=== PATIENT | male | born 1945 | race Caucasian/White ===

== ENCOUNTER 2017-10-15 06:27 | Day surgery (SDC) | payer MEDICARE ==
[~2017-10-15] VITALS: Ht 182.9 cm; Wt 89.4 kg
[~2017-10-15 06:27] MED LIST: ALLOPURINOL100 MG PO; GLUCOSAMINE/CHO1 CA1 PO; LISINOP/HCTZ1 TA1 PO; SIMVASTATIN20 MG PO; VITAMIN C500 M6 PO
[2017-10-15 08:41] VITALS: BP 119/63
== END 2017-10-15 09:24 | disposition home or self-care (01) ==
LOC: ENDO 06:27 → ORM 09:45 → ENDO 09:45
PROVIDERS: ATTEND Internal Medicine Gastroenterology
PROC: 0DBE8ZX Excision of Large Intestine, Via Natural or Artificial Opening Endoscopic, Diagnostic (ICD-10-PCS; principal; 2017-10-15)
DX: K59.00 Constipation, unspecified (principal); R19.7 Diarrhea, unspecified; K64.4 Residual hemorrhoidal skin tags; K57.30 Diverticulosis of large intestine without perforation or abscess without bleeding; K64.8 Other hemorrhoids; E78.00 Pure hypercholesterolemia, unspecified; I10 Essential (primary) hypertension

== ENCOUNTER 2018-04-28 10:42 | Emergency (ER) | payer MEDICARE ==
[~2018-04-28] VITALS: Ht 182.9 cm; Wt 100.0 kg
[2018-04-28] MEDS ORDERED: KEFLEX500 M1 PO (12:25)
[2018-04-28 12:42] VITALS: BP 144/90
== END 2018-04-28 12:42 | disposition home or self-care (01) ==
LOC: ED 10:42
PROC: 0HQ0XZZ Repair Scalp Skin, External Approach (ICD-10-PCS; principal; 2018-04-28)
DX: S01.01XA Laceration without foreign body of scalp, initial encounter (principal); I10 Essential (primary) hypertension; E78.5 Hyperlipidemia, unspecified; W01.190A Fall on same level from slipping, tripping and stumbling with subsequent striking against furniture, initial encounter; Y92.009 Unspecified place in unspecified non-institutional (private) residence as the place of occurrence of the external cause

== ENCOUNTER 2018-04-30 09:37 | Emergency (ER) | payer MEDICARE ==
[~2018-04-30] VITALS: Ht 182.9 cm; Wt 90.5 kg
[~2018-04-30 09:37] MED LIST changes: +KEFLEX500 M1 PO
[2018-04-30 11:28] VITALS: BP 143/74
== END 2018-04-30 11:28 | disposition home or self-care (01) ==
LOC: ED 09:37
DX: S01.01XD Laceration without foreign body of scalp, subsequent encounter (principal); S06.320D Contusion and laceration of left cerebrum without loss of consciousness, subsequent encounter; W01.190D Fall on same level from slipping, tripping and stumbling with subsequent striking against furniture, subsequent encounter

== ENCOUNTER 2018-05-05 12:34 | Emergency (ER) | payer MEDICARE ==
[~2018-05-05] VITALS: Ht 182.9 cm; Wt 90.0 kg
[2018-05-05 13:07] VITALS: BP 154/72
== END 2018-05-05 13:15 | disposition home or self-care (01) ==
LOC: ED 12:34
DX: S01.00XD Unspecified open wound of scalp, subsequent encounter (principal); X58.XXXD Exposure to other specified factors, subsequent encounter; I10 Essential (primary) hypertension; E78.5 Hyperlipidemia, unspecified

== ENCOUNTER 2020-04-01 06:25 | Day surgery (SDC) | payer MEDICARE ==
[~2020-04-01 06:25] MED LIST changes: +ALLERGY NA50 MCG/ACT IN; +B12; +B121000 MCG PO; +HYDROCORTISONE ACETA PR; +HYDROCORTISONE CREAM; +MECLIZINE25 MG PO; +MELOXICAM7.5 MG PO
[2020-04-01 09:02] VITALS: BP 147/73
== END 2020-04-01 10:12 | disposition home or self-care (01) ==
LOC: ENDO 06:25
PROVIDERS: ATTEND Surgery
PROC: 0DBH8ZX Excision of Cecum, Via Natural or Artificial Opening Endoscopic, Diagnostic (ICD-10-PCS; principal; 2020-04-01)
PROC: 0DBE8ZX Excision of Large Intestine, Via Natural or Artificial Opening Endoscopic, Diagnostic (ICD-10-PCS; 2020-04-01)
DX: K57.31 Diverticulosis of large intestine without perforation or abscess with bleeding (principal); K50.10 Crohn's disease of large intestine without complications; K60.2 Anal fissure, unspecified; Z11.59 Encounter for screening for other viral diseases

== ENCOUNTER 2021-02-28 10:16 | Emergency (ER) | payer MEDICARE ==
[~2021-02-28] VITALS: Ht 182.9 cm; Wt 95.0 kg
[2021-02-28] MEDS ORDERED: PERCOCET 10/31 COMBO PO (15:18)
[2021-02-28] MEDS ORDERED: CYCLOBENZAPRINE10 MG PO (15:19)
[2021-02-28 15:40] VITALS: BP 118/79
== END 2021-02-28 15:40 | disposition home or self-care (01) ==
LOC: ED 10:16
DX: S32.020A Wedge compression fracture of second lumbar vertebra, initial encounter for closed fracture (principal); I10 Essential (primary) hypertension; W19.XXXA Unspecified fall, initial encounter